=== PATIENT | female | born 1965 | race Caucasian/White ===

== ENCOUNTER 2017-01-09 14:10 | Emergency (ER) | payer OTHER ==
[~2017-01-09] VITALS: Ht 177.8 cm; Wt 123.4 kg
[~2017-01-09 14:10] MED LIST: ACTOS15 MG; ACTOS30 MG; ADLT ASA LOW81 MG PO; ALPRAZOLAM0.25 MG; AMOX/K CLAV875 M1 PO; AMOXICILLIN500 MG; ANTIBIOTIC; ATORVASTATI80 MG/TAB PO; AUGMENTIN500 MG OR; AUGMENTIN875 MG PO; BABY ASPIRIN81 MG PO; BACTRIM DS1 TAB PO; BYETTA10 MC1 SC; BYETTA10 SC; BYETTA5 SC; CEPHALEXIN500 MG; CIPRO500 MG OR; CIPRO500 MG PO; CIPRODEX1 ML OT; CIPROFLOXACN500 MG; COLACE100 MG PO; CRESTOR10 MG PO; CRESTOR20 MG PO; CYMBALTA30 MG PO; CYMBALTA60 MG PO; DIFLUCAN150 MG; EXENATIDE 10 MCG; FLEXERIL OR; FLEXERIL PO; GABAPENTIN100 MG PO; GABAPENTIN300 MG PO; GABAPENTIN600 MG PO; GLIPIZIDE ER10 M1; HUMULIN 70/30 SC; HYDROCHLOROT25 MG; HYDROCO/APAP1 TA9 PO; IBUPROFEN800 MG; IBUPROFEN800 MG PO; KEFLEX500 MG PO; KLOR-CON 1010 ME1; LANTUS; LANTUS SC; LANTUS100 MG/ML; LANTUS100 MG/ML SC; LASIX 40 MG TAB40 MG PO; LEVACET; LEVACET OR; LEVAQUIN750 MG PO; LEVOTHROID125 MCG PO; LEVOTHROID175 MCG OR; LEVOTHROID200 MCG PO; LEVOTHROID50 MCG OR; LEVOTHROID75 MCG OR; LEVOTHYROXIN150 MC1; LEVOTHYROXIN150 MC1 OR; LEVOTHYROXIN175 MC1; LEVOTHYROXIN50 MCG; LIPITOR20 MG PO; LIPITOR80 MG PO; LISINOPRIL2.5 MG PO; LORTAB 10-325 M1 TAB PO; LORTAB 5 OR; LORTAB 5 PO; LORTAB 7.57.5 MG PO; LYRICA150 MG; LYRICA150 MG OR; LYRICA150 MG PO; LYRICA75 MG PO; METFORMIN1000 MG OR; METFORMIN1000 MG PO; METFORMIN500 MG; METFORMIN500 MG PO; METOPROL TAR25 M1 PO; METOPROL TAR25 MG PO; MOTRIN800 MG OR; MUCINEX1200 MG PO; NAPROSYN500 MG OR; NAPROSYN500 MG PO; NAPROXEN500 MG; NEURONTIN300 MG PO; NEURONTIN600 MG PO; NOVOLOG MIX100 U/ML SC; PENTOXIFYLLI400 M1; PLAVIX75 MG PO; POT CHLORIDE20 ME3 PO; PROAIR HFA IN; PROZAC10 MG PO; SILVADENE1 % EX; SMZ/TMP DS1 TAB; SYNTHROID200 MCG PO; TRAMADOL HCL50 MG; ULTRAM50 M1 PO; XANAX0.25 MG OR; XANAX0.25 MG PO; ZOLOFT100 MG PO; ZOLOFT50 MG PO; ZPAK PO; [UNRECOGNIZED DRUG - OTHER]
[2017-01-09] MEDS ORDERED: LYRICA50 MG PO ×2 (14:23→14:24)
[2017-01-09] MEDS ORDERED: DIABETIC PILL PO (14:26)
[2017-01-09] MEDS ORDERED: BRILINTA90 MG PO (14:29)
[2017-01-09 15:18] LABS: HEMATOCRIT 48.9 % (37.0-47.0); HEMOGLOBIN 16.4 g/dl (12.0-16.0); IMMATURE GRANULOCYTES 0.3 % (0.0-1.0); MEAN CELL VOLUME 85.8 fL CALC (80.0-100.0); MEAN CORPUSCULAR HGB 28.8 pG CALC (26.0-32.0); MEAN CORPUSCULAR HGB CONC 33.5 g/L CALC (32.0-36.0); NEUT# 4.97 thou/uL (2.00-7.15); RED BLOOD COUNT 5.7 mill/uL (4.20-5.60); RED CELL DISTRI WIDTH 13.4 % (11.5-15.5)
[2017-01-09 15:30] LABS: HCG SERUM/URINE (NEG/POS) NEGATIVE (NEGATIVE); INFLUENZA A NONE DETECTED (NONE DETECT); INFLUENZA B NONE DETECTED (NONE DETECT)
[2017-01-09 15:30] LABS: INTERNATIONAL NORMALIZED RATIO 0.9 RATIO (0.7-1.3); PROTHROMBIN TIME 9.9 SECONDS (9.0-12.5)
[2017-01-09 15:32] LABS: ALBUMIN 4.5 g/dL (3.2-5.0); ALKALINE PHOSPHATASE 72 u/l (38-126); ANION GAP 13 (6-22 (CALC)); BILIRUBIN, TOTAL 1.1 mg/dL (0.0-1.4); BUN 12 mg/dL (7-17); BUN/CREATININE RATIO 20 (12-20 (CALC)); CALCIUM 9.7 mg/dL (8.4-10.2); CARBON DIOXIDE 30 mmol/l (22-30); CHLORIDE 102 mmol/l (95-108); CREATININE 0.6 mg/dL (0.5-1.0); GFR > 60 ML/MIN (>=60 (CALC)); GFR FOR AFR.AMER. > 60 ML/MIN (>=60 (CALC)); GLUCOSE 197 mg/dL (65-105); LIPASE 67 u/l (23-300); POTASSIUM 3.8 mmol/l (3.5-5.1); SGOT/AST 21 u/l (14-36); SGPT/ALT 36 u/l (9-52); SODIUM 141 mmol/l (137-146); TOTAL PROTEIN 7.9 g/dL (6.3-8.2)
[2017-01-09 15:44] LABS: MYOGLOBIN 38 ng/mL (0 - 62)
[2017-01-09] MEDS ORDERED: AMOX/K CLAV875 M1 PO (16:11)
[2017-01-09 16:15] VITALS: BP 143/64
[2017-01-09 16:29] LABS: URINE BILIRUBIN - DIPSTICK NEGATIVE (NEGATIVE); URINE BLOOD DIPSTICK TRACE-INTACT (NEGATIVE); URINE CLARITY CLEAR; URINE COLOR YELLOW; URINE GLUCOSE - DIPSTICK NEGATIVE (NEGATIVE); URINE KETONE NEGATIVE (NEGATIVE); URINE LEUK ESTERASE NEGATIVE (Negative); URINE NITRITE - DIPSTICK NEGATIVE (Negative); URINE PROTEIN - DIPSTICK 30 mg/dL (NEG-TRACE)
[2017-01-09 16:33] LABS: BARBITURATES NEGATIVE (NEGATIVE); COCAINE NEGATIVE (NEGATIVE); METHADONE NEGATIVE (NEGATIVE); OXCYCODONE NEGATIVE (NEGATIVE); TETRAHYDROCANNABIONOL NEGATIVE (NEGATIVE); TRICYLIC ANTIDEPRESSANTS NEGATIVE (NEGATIVE)
[2017-01-09 16:37] LABS: URINE SQUAMOUS EPITHELIAL CELL FEW EPI/hpf (0-FEW); URINE WBC 0-2 WBC/hpf (0-5)
[2017-01-09 16:38] LABS: URINE YEAST FEW hpf
== END 2017-01-09 16:18 | disposition home or self-care (01) | DRG 125 ==
LOC: ED 14:10
PROVIDERS: Emergency Medicine
DX: H53.8 Other visual disturbances (principal); E11.40 Type 2 diabetes mellitus with diabetic neuropathy, unspecified; E11.51 Type 2 diabetes mellitus with diabetic peripheral angiopathy without gangrene; R51 Headache; G89.29 Other chronic pain; M54.9 Dorsalgia, unspecified; F41.9 Anxiety disorder, unspecified; E03.9 Hypothyroidism, unspecified; Z79.4 Long term (current) use of insulin; E78.5 Hyperlipidemia, unspecified; F17.210 Nicotine dependence, cigarettes, uncomplicated; Z89.421 Acquired absence of other right toe(s); Z95.1 Presence of aortocoronary bypass graft

== ENCOUNTER 2017-07-23 14:52 | Emergency (ER) | payer OTHER ==
[~2017-07-23] VITALS: Ht 177.8 cm; Wt 125.4 kg
[~2017-07-23 14:52] MED LIST changes: +BRILINTA90 MG PO; +DIABETIC PILL PO; +LYRICA50 MG PO
[2017-07-23] MEDS ORDERED: TRADJENTA5 MG PO (15:34)
[2017-07-23] MEDS ORDERED: ATIVAN0.5 MG PO (15:35)
[2017-07-23] MEDS ORDERED: ARMOUR THYRO120 MG PO (15:36)
[2017-07-23] MEDS ORDERED: LASIX 40 MG TAB40 MG PO (15:37)
[2017-07-23] MEDS ORDERED: NITROSTAT0.4 MG SL (15:38)
[2017-07-23] MEDS ORDERED: LIPITOR20 MG PO (15:39)
[2017-07-23] MEDS ORDERED: LOPRESSOR25 MG PO (15:40)
[2017-07-23] MEDS ORDERED: LORTAB 5/3255 MG PO (15:41)
[2017-07-23] MEDS ORDERED: FLEXERIL PO (15:41)
[2017-07-23] MEDS ORDERED: MOTRIN800 MG PO (15:41)
[2017-07-23 15:44] VITALS: BP 130/60
== END 2017-07-23 15:50 | disposition home or self-care (01) | DRG 558 ==
LOC: ED 14:52
DX: M75.51 Bursitis of right shoulder (principal); M54.6 Pain in thoracic spine; E11.9 Type 2 diabetes mellitus without complications; F17.200 Nicotine dependence, unspecified, uncomplicated

== ENCOUNTER 2017-10-08 16:59 | Emergency (ER) | payer OTHER ==
[~2017-10-08] VITALS: Ht 177.8 cm; Wt 126.0 kg
[~2017-10-08 16:59] MED LIST changes: +ARMOUR THYRO120 MG PO; +ATIVAN0.5 MG PO; +LOPRESSOR25 MG PO; +LORTAB 5/3255 MG PO; +MOTRIN800 MG PO; +NITROSTAT0.4 MG SL; +TRADJENTA5 MG PO
[2017-10-08 19:17] LABS: HEMATOCRIT 43.4 % (37.0-47.0); HEMOGLOBIN 14.5 g/dl (12.0-16.0); IMMATURE GRANULOCYTES 0.8 % (0.0-1.0); MEAN CELL VOLUME 88.9 fL CALC (80.0-100.0); MEAN CORPUSCULAR HGB 29.7 pG CALC (26.0-32.0); MEAN CORPUSCULAR HGB CONC 33.4 g/L CALC (32.0-36.0); NEUT# 9.87 thou/uL (2.00-7.15); RED BLOOD COUNT 4.88 mill/uL (4.20-5.60); RED CELL DISTRI WIDTH 13.7 % (11.5-15.5)
[2017-10-08 19:35] LABS: ANION GAP 18 (6-22 (CALC)); BUN 19 mg/dL (7-17); BUN/CREATININE RATIO 25 (12-20 (CALC)); CARBON DIOXIDE 25 mmol/l (22-30); CHLORIDE 99 mmol/l (95-108); CREATININE 0.8 mg/dL (0.5-1.0); GFR > 60 ML/MIN (>=60 (CALC)); GFR FOR AFR.AMER. > 60 ML/MIN (>=60 (CALC)); POTASSIUM 3.4 mmol/l (3.5-5.1); SODIUM 138 mmol/l (137-146)
[2017-10-09 00:15] VITALS: BP 128/91
== END 2017-10-09 00:15 | disposition short-term general hospital (02) | DRG 603 ==
LOC: ED 16:59 → ED-I 17:14 → ED 10-09 00:15
PROVIDERS: Family Medicine
DX: L02.215 Cutaneous abscess of perineum (principal); B95.7 Other staphylococcus as the cause of diseases classified elsewhere; R50.9 Fever, unspecified

== ENCOUNTER 2017-12-24 15:14 | Inpatient (IN) | payer OTHER ==
[~2017-12-24] VITALS: Ht 172.7 cm; Wt 118.1 kg
[2017-12-24 16:05] LABS: URINE BILIRUBIN - DIPSTICK NEGATIVE (NEGATIVE); URINE BLOOD DIPSTICK SMALL (NEGATIVE); URINE COLOR YELLOW; URINE GLUCOSE - DIPSTICK >=1000 mg/dL (NEGATIVE); URINE KETONE NEGATIVE (NEGATIVE); URINE LEUK ESTERASE NEGATIVE (NEGATIVE); URINE PROTEIN - DIPSTICK TRACE mg/dL (NEG-TRACE); URINE UROBILINOGEN - DIPSTICK 0.2 E.U./dL (0.2)
[2017-12-24 16:06] LABS: HEMATOCRIT 48.4 % (37.0-47.0); HEMOGLOBIN 16.2 g/dl (12.0-16.0); IMMATURE GRANULOCYTES 0.5 % (0.0-1.0); MEAN CELL VOLUME 88.2 fL CALC (80.0-100.0); MEAN CORPUSCULAR HGB 29.5 pG CALC (26.0-32.0); MEAN CORPUSCULAR HGB CONC 33.5 g/L CALC (32.0-36.0); NEUT# 3.23 thou/uL (2.00-7.15); RED BLOOD COUNT 5.49 mill/uL (4.20-5.60); URINE CLARITY CLEAR; URINE NITRITE - DIPSTICK POSITIVE (Negative)
[2017-12-24 16:14] LABS: URINE BACTERIA FEW hpf; URINE SQUAMOUS EPITHELIAL CELL FEW EPI/hpf (0-FEW)
[2017-12-24 16:16] LABS: ALKALINE PHOSPHATASE 100 u/l (38-126); BILIRUBIN, TOTAL 0.8 mg/dL (0.0-1.4); BUN 18 mg/dL (7-17); BUN/CREATININE RATIO 31 (12-20 (CALC)); CARBON DIOXIDE 26 mmol/l (22-30); CHLORIDE 101 mmol/l (95-108); CREATININE 0.6 mg/dL (0.5-1.0); GFR > 60 ML/MIN (>=60 (CALC)); GFR FOR AFR.AMER. > 60 ML/MIN (>=60 (CALC)); LIPASE 137 u/l (23-300); SGOT/AST 17 u/l (14-36); SGPT/ALT 42 u/l (9-52); SODIUM 134 mmol/l (137-146); TOTAL PROTEIN 7.3 g/dL (6.3-8.2)
[2017-12-24 16:26] LABS: ANION GAP 12 (6-22 (CALC)); POTASSIUM 4.6 mmol/l (3.5-5.1)
[2017-12-24 18:15] VITALS: BP 130/64
[2017-12-24 23:50] VITALS: BP 151/80
[2017-12-25] VITALS (8 sets, daily range): BP systolic 104–159; BP diastolic 38–74
[2017-12-25 05:53] LABS: HEMATOCRIT 48.9 % (37.0-47.0); HEMOGLOBIN 16.5 g/dl (12.0-16.0); IMMATURE GRANULOCYTES 0.7 % (0.0-1.0); MEAN CELL VOLUME 88.1 fL CALC (80.0-100.0); MEAN CORPUSCULAR HGB 29.7 pG CALC (26.0-32.0); MEAN CORPUSCULAR HGB CONC 33.7 g/L CALC (32.0-36.0); NEUT# 2.76 thou/uL (2.00-7.15); RED BLOOD COUNT 5.55 mill/uL (4.20-5.60); RED CELL DISTRI WIDTH 13.8 % (11.5-15.5)
[2017-12-25 06:00] LABS: ALBUMIN 3.4 g/dL (3.2-5.0); ALKALINE PHOSPHATASE 87 u/l (38-126); ANION GAP 7 (6-22 (CALC)); BILIRUBIN, TOTAL 0.5 mg/dL (0.0-1.4); BUN 13 mg/dL (7-17); BUN/CREATININE RATIO 33 (12-20 (CALC)); CARBON DIOXIDE 27 mmol/l (22-30); CHLORIDE 107 mmol/l (95-108); CREATININE 0.4 mg/dL (0.5-1.0); GFR > 60 ML/MIN (>=60 (CALC)); GFR FOR AFR.AMER. > 60 ML/MIN (>=60 (CALC)); POTASSIUM 3.8 mmol/l (3.5-5.1); SGOT/AST 16 u/l (14-36); SGPT/ALT 37 u/l (9-52); SODIUM 138 mmol/l (137-146); TOTAL PROTEIN 6.3 g/dL (6.3-8.2)
[2017-12-26] VITALS (7 sets, daily range): BP systolic 118–143; BP diastolic 49–72
[2017-12-26 05:05] LABS: HEMATOCRIT 49.5 % (37.0-47.0); HEMOGLOBIN 16.7 g/dl (12.0-16.0); IMMATURE GRANULOCYTES 0.3 % (0.0-1.0); MEAN CELL VOLUME 88.2 fL CALC (80.0-100.0); MEAN CORPUSCULAR HGB 29.8 pG CALC (26.0-32.0); MEAN CORPUSCULAR HGB CONC 33.7 g/L CALC (32.0-36.0); NEUT# 2.8 thou/uL (2.00-7.15); RED BLOOD COUNT 5.61 mill/uL (4.20-5.60); RED CELL DISTRI WIDTH 13.7 % (11.5-15.5)
[2017-12-26 05:18] LABS: ANION GAP 10 (6-22 (CALC)); BUN 12 mg/dL (7-17); BUN/CREATININE RATIO 31 (12-20 (CALC)); CARBON DIOXIDE 28 mmol/l (22-30); CHLORIDE 106 mmol/l (95-108); CREATININE 0.4 mg/dL (0.5-1.0); GFR > 60 ML/MIN (>=60 (CALC)); GFR FOR AFR.AMER. > 60 ML/MIN (>=60 (CALC)); MAGNESIUM 1.8 mg/dL (1.6-2.3); POTASSIUM 3.4 mmol/l (3.5-5.1); SODIUM 139 mmol/l (137-146)
[2017-12-27 04:00] VITALS: BP 127/70
[2017-12-27 07:50] VITALS: BP 134/50
[2017-12-27 13:48] VITALS: BP 143/76
[2017-12-27 15:46] VITALS: BP 141/52
[2017-12-27 19:02] VITALS: BP 155/76
[2017-12-28 00:31] VITALS: BP 135/67
[2017-12-28 04:20] VITALS: BP 123/64
[2017-12-28 06:11] LABS: HEMATOCRIT 52.1 % (37.0-47.0); HEMOGLOBIN 17.2 g/dl (12.0-16.0); MEAN CELL VOLUME 88.9 fL CALC (80.0-100.0); MEAN CORPUSCULAR HGB 29.4 pG CALC (26.0-32.0); RED BLOOD COUNT 5.86 mill/uL (4.20-5.60); RED CELL DISTRI WIDTH 13.9 % (11.5-15.5)
[2017-12-28 06:36] LABS: ANION GAP 9 (6-22 (CALC)); BUN 14 mg/dL (7-17); BUN/CREATININE RATIO 34 (12-20 (CALC)); CARBON DIOXIDE 27 mmol/l (22-30); CHLORIDE 107 mmol/l (95-108); CREATININE 0.4 mg/dL (0.5-1.0); GFR > 60 ML/MIN (>=60 (CALC)); GFR FOR AFR.AMER. > 60 ML/MIN (>=60 (CALC)); MAGNESIUM 1.7 mg/dL (1.6-2.3); POTASSIUM 3.4 mmol/l (3.5-5.1); SODIUM 139 mmol/l (137-146)
[2017-12-28 08:00] VITALS: BP 154/65
[2017-12-28 11:21] VITALS: BP 116/51
[2017-12-28 15:18] VITALS: BP 141/44
== END 2017-12-28 18:00 | DRG 65 ==
LOC: ED 15:14 → ED-I 17:14 → ED 17:34 → MS2 17:35
PROVIDERS: Family Medicine; Nurse Practitioner Family; ADMIT Internal Medicine; ATTEND Internal Medicine
DX: I63.9 Cerebral infarction, unspecified (principal); N39.0 Urinary tract infection, site not specified; G81.91 Hemiplegia, unspecified affecting right dominant side; R27.0 Ataxia, unspecified; R47.1 Dysarthria and anarthria; I65.22 Occlusion and stenosis of left carotid artery; E11.65 Type 2 diabetes mellitus with hyperglycemia; E11.42 Type 2 diabetes mellitus with diabetic polyneuropathy; E03.9 Hypothyroidism, unspecified; F31.9 Bipolar disorder, unspecified; M79.7 Fibromyalgia; E11.51 Type 2 diabetes mellitus with diabetic peripheral angiopathy without gangrene; F17.210 Nicotine dependence, cigarettes, uncomplicated; I25.10 Atherosclerotic heart disease of native coronary artery without angina pectoris; M47.812 Spondylosis without myelopathy or radiculopathy, cervical region; R29.703 NIHSS score 3; B96.20 Unspecified Escherichia coli [E. coli] as the cause of diseases classified elsewhere; Z91.14 Patient's other noncompliance with medication regimen; Z91.81 History of falling; Z95.820 Peripheral vascular angioplasty status with implants and grafts; Z95.1 Presence of aortocoronary bypass graft; Z79.4 Long term (current) use of insulin; Z89.421 Acquired absence of other right toe(s)
CPT/HCPCS: A9579; J1650

== ENCOUNTER 2018-02-07 19:11 | Emergency (ER) | payer OTHER ==
[~2018-02-07] VITALS: Ht 172.7 cm; Wt 123.0 kg
[2018-02-07 20:02] LABS: HEMATOCRIT 41.6 % (37.0-47.0); HEMOGLOBIN 13.7 g/dl (12.0-16.0); IMMATURE GRANULOCYTES 0.5 % (0.0-5.0); MEAN CELL VOLUME 89.1 fL CALC (80.0-100.0); MEAN CORPUSCULAR HGB 29.3 pG CALC (26.0-32.0); MEAN CORPUSCULAR HGB CONC 32.9 g/L CALC (32.0-36.0); NEUT# 6.06 thou/uL (2.00-7.15); RED BLOOD COUNT 4.67 mill/uL (4.20-5.60); RED CELL DISTRI WIDTH 14.2 % (11.5-15.5)
[2018-02-07 20:22] LABS: ALBUMIN 3.8 g/dL (3.2-5.0); ALKALINE PHOSPHATASE 74 u/l (38-126); ANION GAP 12 (6-22 (CALC)); BILIRUBIN, TOTAL 0.7 mg/dL (0.0-1.4); BUN 22 mg/dL (7-17); BUN/CREATININE RATIO 29 (12-20 (CALC)); CARBON DIOXIDE 30 mmol/l (22-30); CHLORIDE 104 mmol/l (95-108); CREATININE 0.8 mg/dL (0.5-1.0); GFR > 60 ML/MIN (>=60 (CALC)); GFR FOR AFR.AMER. > 60 ML/MIN (>=60 (CALC)); POTASSIUM 3.7 mmol/l (3.5-5.1); SGOT/AST 15 u/l (14-36); SGPT/ALT 25 u/l (9-52); SODIUM 142 mmol/l (137-146); TOTAL PROTEIN 6.6 g/dL (6.3-8.2)
[2018-02-08 00:02] VITALS: BP 128/68
== END 2018-02-08 00:02 | disposition left against medical advice (07) ==
LOC: ED 19:11
PROVIDERS: Emergency Medicine
DX: T82.898A Other specified complication of vascular prosthetic devices, implants and grafts, initial encounter (principal); E11.40 Type 2 diabetes mellitus with diabetic neuropathy, unspecified; E03.9 Hypothyroidism, unspecified; F31.9 Bipolar disorder, unspecified; F41.9 Anxiety disorder, unspecified; I73.9 Peripheral vascular disease, unspecified; F17.210 Nicotine dependence, cigarettes, uncomplicated; Y83.1 Surgical operation with implant of artificial internal device as the cause of abnormal reaction of the patient, or of later complication, without mention of misadventure at the time of the procedure; Z91.19 Patient's noncompliance with other medical treatment and regimen

== ENCOUNTER 2018-02-08 11:47 | Emergency (ER) | payer OTHER ==
[~2018-02-08] VITALS: Ht 172.7 cm; Wt 122.0 kg
[2018-02-08 13:34] LABS: HEMATOCRIT 43.8 % (37.0-47.0); HEMOGLOBIN 14.5 g/dl (12.0-16.0); IMMATURE GRANULOCYTES 0.5 % (0.0-5.0); MEAN CELL VOLUME 89.4 fL CALC (80.0-100.0); MEAN CORPUSCULAR HGB 29.6 pG CALC (26.0-32.0); MEAN CORPUSCULAR HGB CONC 33.1 g/L CALC (32.0-36.0); NEUT# 5.07 thou/uL (2.00-7.15); RED BLOOD COUNT 4.9 mill/uL (4.20-5.60); RED CELL DISTRI WIDTH 14.3 % (11.5-15.5)
[2018-02-08 13:51] LABS: ALKALINE PHOSPHATASE 79 u/l (38-126); ANION GAP 15 (6-22 (CALC)); BILIRUBIN, TOTAL 0.9 mg/dL (0.0-1.4); BUN 20 mg/dL (7-17); BUN/CREATININE RATIO 33 (12-20 (CALC)); CARBON DIOXIDE 27 mmol/l (22-30); CHLORIDE 104 mmol/l (95-108); CREATININE 0.6 mg/dL (0.5-1.0); GFR > 60 ML/MIN (>=60 (CALC)); GFR FOR AFR.AMER. > 60 ML/MIN (>=60 (CALC)); POTASSIUM 3.6 mmol/l (3.5-5.1); SGOT/AST 17 u/l (14-36); SGPT/ALT 27 u/l (9-52); SODIUM 143 mmol/l (137-146); TOTAL PROTEIN 7.1 g/dL (6.3-8.2)
[2018-02-08 14:10] VITALS: BP 116/64
== END 2018-02-08 14:10 | disposition short-term general hospital (02) ==
LOC: ED 11:47
PROVIDERS: Emergency Medicine
DX: T82.898A Other specified complication of vascular prosthetic devices, implants and grafts, initial encounter (principal); Y83.1 Surgical operation with implant of artificial internal device as the cause of abnormal reaction of the patient, or of later complication, without mention of misadventure at the time of the procedure; E03.9 Hypothyroidism, unspecified; F31.9 Bipolar disorder, unspecified; F41.9 Anxiety disorder, unspecified; I73.9 Peripheral vascular disease, unspecified; E11.40 Type 2 diabetes mellitus with diabetic neuropathy, unspecified; F17.210 Nicotine dependence, cigarettes, uncomplicated; Z89.421 Acquired absence of other right toe(s); M79.604 Pain in right leg

== ENCOUNTER 2018-03-21 16:19 | Emergency (ER) | payer OTHER ==
[~2018-03-21] VITALS: Ht 172.7 cm; Wt 128.6 kg
[2018-03-21] MEDS ORDERED: BACTRIM DS1 TAB PO (16:34)
[2018-03-21] MEDS ORDERED: CEPHALEXIN500 M1 PO (16:34)
[2018-03-21 16:52] VITALS: BP 111/78
== END 2018-03-21 17:03 | disposition home or self-care (01) ==
LOC: ED 16:19
DX: T81.31XA Disruption of external operation (surgical) wound, not elsewhere classified, initial encounter (principal); M19.90 Unspecified osteoarthritis, unspecified site; E03.9 Hypothyroidism, unspecified; F31.9 Bipolar disorder, unspecified; E11.40 Type 2 diabetes mellitus with diabetic neuropathy, unspecified; M79.7 Fibromyalgia; E11.51 Type 2 diabetes mellitus with diabetic peripheral angiopathy without gangrene; F17.210 Nicotine dependence, cigarettes, uncomplicated; Y83.2 Surgical operation with anastomosis, bypass or graft as the cause of abnormal reaction of the patient, or of later complication, without mention of misadventure at the time of the procedure; Z95.1 Presence of aortocoronary bypass graft

== ENCOUNTER 2018-03-26 16:22 | Emergency (ER) | payer OTHER ==
[~2018-03-26] VITALS: Ht 172.7 cm; Wt 124.4 kg
[~2018-03-26 16:22] MED LIST changes: +CEPHALEXIN500 M1 PO
[2018-03-26 17:17] VITALS: BP 112/63
== END 2018-03-26 17:17 | disposition home or self-care (01) ==
LOC: ED 16:22
DX: T81.31XA Disruption of external operation (surgical) wound, not elsewhere classified, initial encounter (principal); E03.9 Hypothyroidism, unspecified; F31.9 Bipolar disorder, unspecified; E11.40 Type 2 diabetes mellitus with diabetic neuropathy, unspecified; F17.210 Nicotine dependence, cigarettes, uncomplicated; M79.7 Fibromyalgia; I73.9 Peripheral vascular disease, unspecified; Y83.8 Other surgical procedures as the cause of abnormal reaction of the patient, or of later complication, without mention of misadventure at the time of the procedure; Z95.820 Peripheral vascular angioplasty status with implants and grafts; Z95.1 Presence of aortocoronary bypass graft

== ENCOUNTER 2018-08-26 16:12 | Emergency (ER) | payer OTHER ==
[~2018-08-26] VITALS: Ht 172.7 cm; Wt 119.5 kg
[2018-08-26 17:22] LABS: HEMATOCRIT 38.1 % (37.0-47.0); IMMATURE GRANULOCYTES 0.6 % (0.0-5.0); MEAN CORPUSCULAR HGB 27.3 pG CALC (26.0-32.0); MEAN CORPUSCULAR HGB CONC 31.8 g/L CALC (32.0-36.0); NEUT# 6.41 thou/uL (2.00-7.15); RED BLOOD COUNT 4.43 mill/uL (4.20-5.60); RED CELL DISTRI WIDTH 16.6 % (11.5-15.5)
[2018-08-26 17:27] LABS: HEMOGLOBIN 12.1 g/dl (12.0-16.0)
[2018-08-26 17:34] LABS: ALBUMIN 3.8 g/dL (3.2-5.0); ALKALINE PHOSPHATASE 73 u/l (38-126); ANION GAP 13 (6-22 (CALC)); BILIRUBIN, TOTAL 0.6 mg/dL (0.0-1.4); BUN 24 mg/dL (7-17); BUN/CREATININE RATIO 21 (12-20 (CALC)); CARBON DIOXIDE 31 mmol/l (22-30); CHLORIDE 97 mmol/l (95-108); CREATININE 1.1 mg/dL (0.5-1.0); GFR 52 ML/MIN (>=60 (CALC)); GFR FOR AFR.AMER. > 60 ML/MIN (>=60 (CALC)); POTASSIUM 3.8 mmol/l (3.5-5.1); SGOT/AST 20 u/l (14-36); SODIUM 138 mmol/l (137-146); TOTAL PROTEIN 7.7 g/dL (6.3-8.2)
[2018-08-26 17:36] LABS: INTERNATIONAL NORMALIZED RATIO 0.9 RATIO (0.7-1.3); PROTHROMBIN TIME 9.8 SECONDS (9.0-12.5)
[2018-08-26 18:35] VITALS: BP 143/65
== END 2018-08-26 18:41 | disposition short-term general hospital (02) ==
LOC: ED 16:12
PROVIDERS: Emergency Medicine
DX: I62.9 Nontraumatic intracranial hemorrhage, unspecified (principal); R47.81 Slurred speech; R26.9 Unspecified abnormalities of gait and mobility; R53.1 Weakness; R29.705 NIHSS score 5; F17.210 Nicotine dependence, cigarettes, uncomplicated; R42 Dizziness and giddiness; E11.9 Type 2 diabetes mellitus without complications; Z79.4 Long term (current) use of insulin; Z95.5 Presence of coronary angioplasty implant and graft

== ENCOUNTER 2019-08-06 | Day surgery (SDC) | payer OTHER ==
[~2019-08-06] MED LIST changes: +ASPIRIN ADULT L81 M2 PO; +COZAAR25 MG PO; +FENTANYL25 MCG/HR TD; +IBUPROFEN600 MG PO; +LIPITOR40 M1 PO; +LYRICA100 MG PO; +LYRICA200 MG PO; +NORCO1 TA2 PO; +PAROXETINE HCL40 MG PO; +VITA D-1000 PO
[2019-11-18] MEDS ORDERED: NOVOLIN 70/30 RELION SC (14:55)
[2019-11-18] MEDS ORDERED: PERCOCET 10/31 COMBO PO (15:11)
[2019-12-16] MEDS ORDERED: PERCOCET 10/31 COMBO PO (15:26)
[2020-01-20] MEDS ORDERED: PERCOCET 10/31 COMBO PO (14:02)
[2020-01-20] MEDS ORDERED: LYRICA200 MG PO (14:04)
[2020-02-17] MEDS ORDERED: PERCOCET 10/31 COMBO PO (15:08)
[2020-03-23] MEDS ORDERED: PERCOCET 10/31 COMBO PO (12:40)
== END 2019-08-06 08:15 | disposition home or self-care (01) ==
DX: M65.812 Other synovitis and tenosynovitis, left shoulder (principal)

== ENCOUNTER 2019-09-02 | Emergency (ER) | payer OTHER ==
[2019-09-02] MEDS ORDERED: LYRICA200 MG PO (14:13)
[2019-09-02] MEDS ORDERED: HYDROCODONE/ACE1 TAB PO (14:14)
[2019-09-02] MEDS ORDERED: BACTRIM DS1 TAB PO (17:42)
[2019-09-02] MEDS ORDERED: CEPHALEXIN500 M1 PO (17:42)
[2019-11-18] MEDS ORDERED: NOVOLIN 70/30 RELION SC (14:55)
[2019-11-18] MEDS ORDERED: PERCOCET 10/31 COMBO PO (15:11)
[2019-12-16] MEDS ORDERED: PERCOCET 10/31 COMBO PO (15:26)
[2020-01-20] MEDS ORDERED: PERCOCET 10/31 COMBO PO (14:02)
[2020-01-20] MEDS ORDERED: LYRICA200 MG PO (14:04)
[2020-02-17] MEDS ORDERED: PERCOCET 10/31 COMBO PO (15:08)
[2020-03-23] MEDS ORDERED: PERCOCET 10/31 COMBO PO (12:40)
== END 2019-09-02 18:19 | disposition home or self-care (01) ==
DX: L03.011 Cellulitis of right finger (principal); L03.115 Cellulitis of right lower limb; E11.40 Type 2 diabetes mellitus with diabetic neuropathy, unspecified; E11.51 Type 2 diabetes mellitus with diabetic peripheral angiopathy without gangrene; E03.9 Hypothyroidism, unspecified; F17.200 Nicotine dependence, unspecified, uncomplicated; Z79.4 Long term (current) use of insulin; Z95.820 Peripheral vascular angioplasty status with implants and grafts

== ENCOUNTER 2019-09-02 14:23 | Emergency (ER) | payer OTHER ==
[~2019-09-02 14:23] MED LIST changes: +HYDROCODONE/ACE1 TAB PO
[2019-09-02] MEDS ORDERED: BACTRIM DS1 TAB PO (17:42)
[2019-09-02] MEDS ORDERED: CEPHALEXIN500 M1 PO (17:42)
[2019-11-18] MEDS ORDERED: NOVOLIN 70/30 RELION SC (14:55)
[2019-11-18] MEDS ORDERED: PERCOCET 10/31 COMBO PO (15:11)
[2019-12-16] MEDS ORDERED: PERCOCET 10/31 COMBO PO (15:26)
[2020-01-20] MEDS ORDERED: PERCOCET 10/31 COMBO PO (14:02)
[2020-01-20] MEDS ORDERED: LYRICA200 MG PO (14:04)
[2020-02-17] MEDS ORDERED: PERCOCET 10/31 COMBO PO (15:08)
[2020-03-23] MEDS ORDERED: PERCOCET 10/31 COMBO PO (12:40)
== END 2019-09-02 14:51 | disposition left against medical advice (07) | DRG 951 ==
LOC: ED 14:23 → LWOBS 14:50
DX: Z53.21 Procedure and treatment not carried out due to patient leaving prior to being seen by health care provider (principal)

== ENCOUNTER 2019-09-10 | Day surgery (SDC) | payer OTHER ==
[2019-11-18] MEDS ORDERED: NOVOLIN 70/30 RELION SC (14:55)
[2019-11-18] MEDS ORDERED: PERCOCET 10/31 COMBO PO (15:11)
[2019-12-16] MEDS ORDERED: PERCOCET 10/31 COMBO PO (15:26)
[2020-01-20] MEDS ORDERED: PERCOCET 10/31 COMBO PO (14:02)
[2020-01-20] MEDS ORDERED: LYRICA200 MG PO (14:04)
[2020-02-17] MEDS ORDERED: PERCOCET 10/31 COMBO PO (15:08)
[2020-03-23] MEDS ORDERED: PERCOCET 10/31 COMBO PO (12:40)
== END 2019-09-10 08:40 | disposition home or self-care (01) ==
DX: M65.812 Other synovitis and tenosynovitis, left shoulder (principal)

== ENCOUNTER 2020-08-11 06:44 | Day surgery (SDC) | payer OTHER ==
[~2020-08-11] VITALS: Ht 175.3 cm; Wt 129.3 kg
[~2020-08-11 06:44] MED LIST changes: +NOVOLIN 70/30 RELION SC; +PERCOCET 10/31 COMBO PO
[2020-08-11] MEDS ORDERED: PERCOCET 10/31 COMBO PO ×2 (11:48→11:49)
[2020-08-11 13:05] VITALS: BP 149/60
== END 2020-08-11 12:10 | disposition home or self-care (01) ==
LOC: ORM 06:44
PROVIDERS: ATTEND Anesthesiology Pain Medicine
DX: M12.9 Arthropathy, unspecified (principal); Z01.84 Encounter for antibody response examination; M46.1 Sacroiliitis, not elsewhere classified

== ENCOUNTER 2021-02-16 06:41 | Day surgery (SDC) | payer OTHER ==
[~2021-02-16] VITALS: Ht 175.3 cm; Wt 131.5 kg
[2021-02-16] MEDS ORDERED: PERCOCET 10/31 COMBO PO ×2 (08:43→08:46)
[2021-02-16 09:09] VITALS: BP 122/59
== END 2021-02-16 09:48 | disposition home or self-care (01) ==
LOC: ORM 06:41
PROVIDERS: ATTEND Anesthesiology Pain Medicine
DX: M54.5 Low back pain (principal)

== ENCOUNTER 2021-06-29 05:55 | Day surgery (SDC) | payer OTHER ==
[~2021-06-29] VITALS: Ht 175.3 cm; Wt 136.1 kg
[2021-06-29] MEDS ORDERED: LORAZEPAM0.5 MG PO (06:59)
[2021-06-29] MEDS ORDERED: LAMICTAL100 M1 PO (07:00)
[2021-06-29] MEDS ORDERED: BUPROPION HCL150 M2 PO (07:01)
[2021-06-29] MEDS ORDERED: PERCOCET 10/31 COMBO PO (08:01)
[2021-06-29 09:36] VITALS: BP 139/65
== END 2021-06-29 09:42 | disposition home or self-care (01) ==
LOC: ORM 05:55
PROVIDERS: ATTEND Anesthesiology Pain Medicine
DX: M54.59 Other low back pain (principal); M51.37 Other intervertebral disc degeneration, lumbosacral region

== ENCOUNTER 2021-10-05 08:10 | Day surgery (SDC) | payer OTHER ==
[~2021-10-05 08:10] MED LIST changes: +BUPROPION HCL150 M2 PO; +LAMICTAL100 M1 PO; +LORAZEPAM0.5 MG PO
[2021-10-05] MEDS ORDERED: HYDROXYZINE HCL10 MG PO (08:46)
[2021-10-05] MEDS ORDERED: HUMULIN R500 UNIT/M SC (08:59)
[2021-10-05 09:39] VITALS: BP 114/48
== END 2021-10-05 10:10 | disposition home or self-care (01) ==
LOC: ORM 08:10
PROVIDERS: ATTEND Physical Medicine & Rehabilitation
DX: M53.3 Sacrococcygeal disorders, not elsewhere classified (principal); G89.4 Chronic pain syndrome

== ENCOUNTER 2022-03-22 08:50 | Day surgery (SDC) | payer OTHER ==
[~2022-03-22] VITALS: Ht 175.3 cm; Wt 136.1 kg
[~2022-03-22 08:50] MED LIST changes: +HUMULIN R500 UNIT/M SC; +HYDROXYZINE HCL10 MG PO
[2022-03-22 11:07] VITALS: BP 140/78
== END 2022-03-22 11:00 | disposition home or self-care (01) ==
LOC: ORM 08:50
PROVIDERS: ATTEND Physical Medicine & Rehabilitation
DX: M47.816 Spondylosis without myelopathy or radiculopathy, lumbar region (principal); G89.4 Chronic pain syndrome; E11.40 Type 2 diabetes mellitus with diabetic neuropathy, unspecified; F11.99 Opioid use, unspecified with unspecified opioid-induced disorder; K59.03 Drug induced constipation; M53.3 Sacrococcygeal disorders, not elsewhere classified

== ENCOUNTER 2023-06-27 06:59 | Day surgery (SDC) | payer OTHER ==
[~2023-06-27] VITALS: Ht 175.3 cm; Wt 127.0 kg
[2023-06-27 07:32] VITALS: BP 98/54
[2023-06-27] MEDS ORDERED: OZEMPIC2 MG SC (07:34)
== END 2023-06-27 08:00 | disposition home or self-care (01) ==
LOC: ORM 06:59
PROVIDERS: ATTEND Student in an Organized Health Care Education/Training Program
DX: G89.4 Chronic pain syndrome (principal); Z53.9 Procedure and treatment not carried out, unspecified reason

== ENCOUNTER 2023-07-04 07:07 | Day surgery (SDC) | payer OTHER ==
[~2023-07-04] VITALS: Ht 175.3 cm; Wt 129.3 kg
[~2023-07-04 07:07] MED LIST changes: +OZEMPIC2 MG SC
[2023-07-04 09:21] VITALS: BP 136/62
== END 2023-07-04 09:05 | disposition home or self-care (01) ==
LOC: ORM 07:07
PROVIDERS: ATTEND Student in an Organized Health Care Education/Training Program
DX: G89.4 Chronic pain syndrome (principal); M54.16 Radiculopathy, lumbar region; E11.40 Type 2 diabetes mellitus with diabetic neuropathy, unspecified; F11.99 Opioid use, unspecified with unspecified opioid-induced disorder; K59.03 Drug induced constipation; M53.3 Sacrococcygeal disorders, not elsewhere classified; M25.512 Pain in left shoulder; M75.52 Bursitis of left shoulder
CPT/HCPCS: A9585; J1100; Q9967